=== PATIENT | female | born 1945 | race Two or more races ===

== ENCOUNTER 2025-01-15 07:30 | Outpatient (CLI) | payer OTHER ==
[~2025-01-15 07:30] MED LIST: NABUMETONE500 MG PO; PERCOCET 5/3251 TAB PO
== END 2025-01-15 07:35 | disposition home or self-care (01) ==
LOC: NUCLEAR 07:30
PROVIDERS: ATTEND Internal Medicine Hematology & Oncology
DX: C64.2 Malignant neoplasm of left kidney, except renal pelvis (principal)
CPT/HCPCS: 78709; A9539

== ENCOUNTER 2025-01-20 07:29 | Outpatient (CLI) | payer OTHER | END 2025-01-20 07:30 | disposition home or self-care (01) | LOC: NUCLEAR 07:29 | PROVIDERS: ATTEND Urology | DX: I20.9 Angina pectoris, unspecified (principal) | CPT/HCPCS: 78452; 93017; A9500; J0153 ==

== ENCOUNTER 2025-01-28 09:51 | Outpatient (CLI) | payer OTHER | END 2025-01-28 09:52 | disposition home or self-care (01) | LOC: NUCLEAR 09:51 | PROVIDERS: ATTEND Urology | DX: C64.2 Malignant neoplasm of left kidney, except renal pelvis (principal) | CPT/HCPCS: 78709; A9539 ==

== ENCOUNTER 2025-03-07 07:00 | Inpatient (IN) | payer OTHER ==
[~2025-03-07] VITALS: Ht 152.4 cm; Wt 56.7 kg
[2025-03-07] MEDS ORDERED: ADVIL100 M1 PO (08:34)
[2025-03-07 08:40] VITALS: BP 150/79
[2025-03-07 08:41] LABS: BASO % 0.5 % (0.1-1.2); EOS # 0.13 (0.04-0.54); EOS % 2.1 % (0.7-7.0); HEMATOCRIT 41.1 % (34.1-44.9); HEMOGLOBIN 13.6 g/dL (11.2-15.7); LYMPH # 1.94 (1.18-3.74); LYMPH % 31.2 % (19.3-53.1); MEAN CORPUSCULAR HEMOGLOBIN 28.8 pg (25.6-32.2); MONO # 0.66 (0.24-0.82); MONO % 10.6 % (4.7-12.5); NEUT # 3.44 (1.56-6.13); NEUT % 55.4 % (34.0-71.1); PLATELET COUNT 266 K/uL (163-369); RED BLOOD COUNT 4.73 M/uL (3.93-5.22); RED CELL DISTRIBUTION WIDTH 13.2 % (11.6-14.4)
[2025-03-07 08:45] LABS: COVID-19 AG NEGATIVE (NEGATIVE)
[2025-03-07 08:47] LABS: PH,URINE 5.5 (5.0-8.0); URINE APPEARANCE Clear; URINE BILIRRUBIN Negative (NEGATIVE); URINE BLOOD Negative; URINE COLOR Yellow; URINE GLUCOSE Negative (NEGATIVE); URINE KETONE Negative (NEGATIVE); URINE LEUKOCYTE Small; URINE NITRATE Negative; URINE PROTEIN Negative (NEGATIVE); URINE UROBILINOGEN 0.2 E.U./dl
[2025-03-07 08:51] LABS: URINE BACTERIA 35.4 uL (0.0-1933); URINE EPITHELIAL CELLS 9.8 uL (0.0-38.8); URINE WBC 29.4 uL (0.0-23.2)
[2025-03-07 09:03] LABS: CALCIUM 9.2 mg/dL (8.5-10.1); CREATININE SERUM 0.66 mg/dL (0.55-1.02); GFR 86.17; POTASSIUM 3.53 mEq/L (3.5-5.1)
[2025-03-07 09:10] LABS: URINE CAST 0.14 uL (0.0-1.40); URINE RBC 1.1 uL (0.0-20.8)
[2025-03-07 09:20] LABS: INR 0.97; PARTIAL THROMBOPLASTIN TIME 27.1 SECONDS (22.0-34.0); PROTHROMBIN TIME 10.6 SECONDS (9.0-11.5)
[2025-03-14] MEDS ORDERED: CEFAZOLIN SODIUM 1,000 MG VIAL ONE (07:01)
[2025-03-14] MEDS ORDERED: ENOXAPARIN SODIUM 40 MG/0.4 ML SYRINGE SUBCUTANEO ONE (07:01)
[2025-03-14] MEDS ORDERED: HEPARIN SODIUM,PORCINE 5,000 UNITS/ML VIAL IV NR (08:00)
[2025-03-14] MEDS ORDERED: ONDANSETRON HCL 2 MG/ML VIAL IV PRN (08:00)
[2025-03-14] MEDS ORDERED: MORPHINE SULFATE 2 MG/ML CARTRIDGE IV PRN (08:00)
[2025-03-14] MEDS ORDERED: HEPARIN SODIUM,PORCINE 5,000 UNITS/ML VIAL ONE (08:33)
[2025-03-14] MEDS ORDERED: FAMOtidine 20 MG TABLET PO SCH (09:00)
[2025-03-14] MEDS ORDERED: DOCUSATE SODIUM 100MG CAP PO SCH (09:00)
[2025-03-14] MEDS ORDERED: DEXTROSE 5 %-0.45 % SOD CHLORD 1,000 ML IV SCH (09:00)
[2025-03-14] MEDS ORDERED: SUGAMMADEX SODIUM 200 MG/2 ML VIAL IV ONE (10:09)
[2025-03-14] MEDS ORDERED: MORPHINE SULFATE 4 MG/ML VIAL IV ONE ×2 (11:50→12:25)
[2025-03-14 16:10] VITALS: BP 170/76; O2SAT 95
[2025-03-14] MEDS ORDERED: CIPROFLOXACIN IN 5 % DEXTROSE 200 ML IV SCH (21:00)
[2025-03-15 00:47] VITALS: BP 125/73; O2SAT 98
[2025-03-15 08:31] VITALS: BP 146/62; O2SAT 99
[2025-03-15 08:36] LABS: BASO % 0.1 % (0.1-1.2); EOS # 0.02 (0.04-0.54); EOS % 0.2 % (0.7-7.0); HEMATOCRIT 38.3 % (34.1-44.9); HEMOGLOBIN 12.7 g/dL (11.2-15.7); LYMPH # 1.21 (1.18-3.74); LYMPH % 13.2 % (19.3-53.1); MEAN CORPUSCULAR HEMOGLOBIN 29.3 pg (25.6-32.2); MONO # 1.08 (0.24-0.82); MONO % 11.7 % (4.7-12.5); NEUT # 6.86 (1.56-6.13); NEUT % 74.6 % (34.0-71.1); PLATELET COUNT 216 K/uL (163-369); RED BLOOD COUNT 4.34 M/uL (3.93-5.22); RED CELL DISTRIBUTION WIDTH 13.2 % (11.6-14.4)
[2025-03-15 09:05] LABS: CALCIUM 8.9 mg/dL (8.5-10.1); CREATININE SERUM 0.92 mg/dL (0.55-1.02); GFR 58.73; POTASSIUM 4.1 mEq/L (3.5-5.1)
[2025-03-15] MEDS ORDERED: OxyCODONE HCL 5 MG TABLET (ROXICODONE) PO PRN ×2 (16:00→16:15)
[2025-03-15 16:43] VITALS: BP 148/73; O2SAT 92
[2025-03-15] MEDS ORDERED: CYCLOBENZAPRINE HCL 5 MG TABLET PO SCH (17:00)
[2025-03-15] MEDS ORDERED: ACETAMINOPHEN 325 MG TABLET PO SCH (17:00)
[2025-03-15 18:00] VITALS: BP 160/75; O2SAT 91
[2025-03-15 20:00] VITALS: BP 130/71; O2SAT 95
[2025-03-16] VITALS: BP 148/75; O2SAT 95
[2025-03-16 02:15] VITALS: BP 142/74; O2SAT 95
[2025-03-16 04:00] VITALS: BP 146/73; O2SAT 96
[2025-03-16 08:55] VITALS: BP 151/69; O2SAT 95
== END 2025-03-16 16:33 | disposition home or self-care (01) | DRG 658 ==
LOC: O/R 03-14 05:23 → SURH 03-14 07:00
PROVIDERS: ADMIT Urology; ATTEND Urology
PROC: 0TT14ZZ Resection of Left Kidney, Percutaneous Endoscopic Approach (ICD-10-PCS; principal; 2025-03-14 07:00)
DX: C64.2 Malignant neoplasm of left kidney, except renal pelvis (principal)

== ENCOUNTER 2025-09-26 14:42 | Outpatient (CLI) | payer OTHER ==
[~2025-09-26 14:42] MED LIST changes: +ADVIL100 M1 PO
== END 2025-09-26 14:48 | disposition home or self-care (01) ==
LOC: RAD 14:42
PROVIDERS: ATTEND Urology
DX: C64.2 Malignant neoplasm of left kidney, except renal pelvis (principal); N31.1 Reflex neuropathic bladder, not elsewhere classified

== ENCOUNTER 2025-09-29 10:03 | Outpatient (CLI) | payer OTHER | END 2025-09-29 10:18 | disposition home or self-care (01) | LOC: MRI 10:03 | DX: C64.9 Malignant neoplasm of unspecified kidney, except renal pelvis (principal) | CPT/HCPCS: 72197; 74183; Q9965 ==